=== PATIENT | male | born 1960 | race Caucasian/White ===

== ENCOUNTER 2018-02-04 16:43 | Observation (INO) | payer OTHER ==
[2018-02-04] MEDS ORDERED: ASPIRIN CHEW 81 MG TABLET PO STA (17:18)
[2018-02-04] MEDS ORDERED: NITROGLYCERIN SL 0.4 MG TABLET SL STA ×2 (17:18→17:52)
--- NOTE | 2018-02-04 17:19 | ED Physician Documentation ---
History of Present Illness - Stated complaint Stated Complaint: CHEST PX - Chief complaint Chief Complaint: General - History obtained from History obtained from: Patient, Family - History of Present Illness Timing: How many hours ago (2) Pain level max: 6 Pain level now: 5 Improved by: nothing Worsened by: palpation - Additonal information Additional information: Patient is a 57-year-old gentleman with no real significant past medical history who states he developed left-sided chest pain approximately 2 hours ago. Describes this as a dull ache. Worse with palpation and movement. Denies any recent injury or trauma. Nothing is improved the pain. Has never had similar symptoms. No history of cardiac disease. Does not smoke. Has a strong family history of cardiac disease. Review of Systems Ten Systems: 10 systems reviewed and negative Constitutional: denies: Fever, Chills Ears: denies: Ear pain Nose: denies: Rhinorrhea / runny nose, Congestion Throat: denies: Sore throat Cardiac: reports: Chest pain / pressure Respiratory: denies: Dyspnea, Cough, Hemoptysis, Wheezing GI: denies: Abdominal Pain, Nausea, Vomiting, Diarrhea Skin: denies: Rash Musculoskeletal: denies: Neck pain, Back pain Neurologic: denies: Focal weakness, Numbness, Headache PD PAST MEDICAL HISTORY - Past Medical History Past Medical History: No - Past Surgical History Past Surgical History: No - Present Medications Home Medications: Ambulatory Orders Medication Instructions Recorded Confirmed No Known Home Medications [No 02/04/18 02/04/18 Known Home Medications] - Allergies Allergies/Adverse Reactions: Allergies Allergy/AdvReac Type Severity Reaction Status Date / Time bee venom protein (honey bee) Allergy Unknown Verified 02/04/18 16:51 - Living Situation Living Situation: reports: With family Living Arrangement: reports: At home - Social History Does the pt smoke?: No Does the pt have substance abuse?: No - Family History Family history: reports: CAD PD ED PE NORMAL - Vitals Vital signs reviewed: Yes - General General: Alert and oriented X 3, No acute distress, Well developed/nourished - HEENT HEENT: PERRL, Moist mucous membranes - Neck Neck: Supple, no meningeal sign, No JVD, No bruit - Cardiac Cardiac: RRR, No murmur, Strong equal pulses - Respiratory Respiratory: No respiratory distress, Clear bilaterally - Abdomen Abdomen: Soft, Non tender, Non distended - Back Back: No spinal TTP - Derm Derm: Warm and dry - Extremities Extremities: No edema, No calf tenderness / cord - Neuro Neuro: Alert and oriented X 3 - Psych Psych: Normal mood, Normal affect Results - Vitals Vitals: Vital Signs - 24 hr 02/04/18 16:51 Temperature 36.9 C Heart Rate 72 Respiratory 16 Rate Blood Pressure 145/77 H O2 Saturation 99 Oxygen O2 Source Room air - EKG (time done) 1653 Rate: Rate (enter#) (64) Rhythm: NSR [place]: Normal QRS: LVH Ischemia: T wave inversion (III, aVF) Compare to prior EKG: Old EKG unavailable 1711 Rate: Rate (enter#) (57) Rhythm: NSR [place]: Normal Intervals: Normal [place] QRS: LVH Ischemia: T wave inversion (III, aVF) Computer interpretation: Agree with computer - Labs Labs: Laboratory Tests 02/04/18 02/04/18 02/04/18 17:15 17:15 17:15 WBC 13.6 H RBC 4.70 Hgb 13.7 L Hct 42.2 MCV 89.8 MCH 29.2 MCHC 32.5 RDW 13.9 Plt Count 294 MPV 6.9 L Neut # 10.5 H Lymph # 1.8 [place] # 0.8 Eos # 0.5 Baso # 0.1 Absolute Nucleated RBC 0.01 Nucleated RBC % 0.0 Sodium 138 Potassium 3.9 Chloride 103 Carbon Dioxide 27 Anion Gap 8.0 BUN 25 H Creatinine 0.7 Estimated GFR (MDRD) 116 Glucose 106 H Calcium 9.2 Total Bilirubin 0.6 AST 23 ALT 24 Alkaline Phosphatase 135 H Troponin I < 0.04 Total Protein 8.3 H Albumin 4.5 Globulin 3.8 Albumin/Globulin Ratio 1.2 Lipase 28 - Rads (name of study) cxr Radiology: Prelim report reviewed, EMP read contemporaneously, See rad report ( normal) PD MEDICAL DECISION MAKING - ED course Complexity details: reviewed results, re-evaluated patient, considered differential (No ST elevation RI, no aortic dissection, no PE, no tension pneumothorax, no aortic aneurysm), d/w patient, d/w family, d/w health management consultant ED course: Patient is a 57-year-old gentleman who presents to the emergency department with chest pain today. Feels better after nitroglycerin and Toradol. Nonspecific findings on EKG. Heart score of 4. Will place the patient in observation for rule out RI. Discussed the case with the hospitalist who accepts. Patient was given aspirin in the emergency department as well. This document was made in part using voice recognition software. While efforts are made to proofread this document, sound alike and grammatical errors may occur. Departure - Departure Disposition: ED Place in Observation Clinical Impression: Chest pain Qualifiers: Chest pain type: unspecified Qualified Code(s): R07.9 - Chest pain, unspecified Condition: Stable Discharge Date/Time: 02/04/18 19:00
[2018-02-04 17:22] LABS: BASOPHILS # (AUTO) 0.1 10^3/uL (0.0-0.1); BASOPHILS % (AUTO) 0.4 %; EOSINOPHILS # (AUTO) 0.5 10^3/uL (0.0-0.7); EOSINOPHILS % (AUTO) 3.7 %; HGB - HEMOGLOBIN 13.7 g/dL (14.0-18.0); LYMPHOCYTES # (AUTO) 1.8 10^3/uL (1.5-3.5); LYMPHOCYTES % (AUTO) 13.1 %; MEAN CORPUSCULAR HEMOGLOBIN 29.2 pg (27.0-31.0); MEAN CORPUSCULAR HGB CONC 32.5 g/dL (32.0-36.0); MEAN CORPUSCULAR VOLUME 89.8 fL (80.0-94.0); MEAN PLATELET VOLUME 6.9 fL (7.4-11.4); MONOCYTES # (AUTO) 0.8 10^3/uL (0.0-1.0); MONOCYTES % (AUTO) 5.9 %; NEUTROPHILS # (AUTO) 10.5 10^3/uL (1.5-6.6); NEUTROPHILS % (AUTO) 76.9 %; PLT - PLATELET COUNT 294 10^3/uL (130-450); RED CELL DISTRIBUTION WIDTH 13.9 % (12.0-15.0); WHITE BLOOD COUNT 13.6 x10^3/uL (4.8-10.8)
[2018-02-04 17:34] LABS: ALBUMIN 4.5 g/dL (3.2-5.5); ALBUMIN/GLOBULIN RATIO 1.2 (1.0-2.2); BILIRUBIN,TOTAL 0.6 mg/dL (0.2-1.0); CALCIUM 9.2 mg/dL (8.5-10.3); CREATININE 0.7 mg/dL (0.6-1.2); TOTAL PROTEIN 8.3 g/dL (6.7-8.2)
--- NOTE | 2018-02-04 17:38 | XRAY Report ---
EXAM: CHEST RADIOGRAPHY EXAM DATE: 02/04/2018 05:04 PM. CLINICAL HISTORY: Chest pain. COMPARISON: None. TECHNIQUE: 2 views. FINDINGS: Lungs/Pleura: No focal opacities evident. No pleural effusion. No pneumothorax. Normal volumes. Mediastinum: Heart and mediastinal contours are unremarkable. Other: Mild anterior wedging is present at multiple levels in the mid to lower thoracic spine. IMPRESSION: Normal 2-view chest radiography. [facility] Referring Provider Line: [phone] SITE ID: [id number]
[2018-02-04] MEDS ORDERED: KETOROLAC 15 MG/ML VIAL IVP STA (17:52)
[2018-02-04] MEDS ORDERED: SODIUM CHLORIDE FLUSH 0.9% 10 ML SYRINGE IVP PRN (18:18)
[2018-02-04] MEDS ORDERED: TEMAZEPAM 15 MG CAPSULE PO PRN (18:18)
[2018-02-04] MEDS ORDERED: oxyCODONE 5 MG TABLET PO PRN (18:18)
--- NOTE | 2018-02-04 19:01 | HISTORY & PHYSICAL EXAMINATION ---
Chief Complaint - Chief Complaint Chief Complaint: chest pain History of Present Illness - Admitted From Admitted From:: Home - History Obtained From History obtained from: patient, ER physician - History of Present Illness HPI Comment/Other: Mr. Gabino Ya is a very pleasant 57-year-old gentleman who began to experience left chest pain at about 315 today. This pain was steady and did not wax or wane. It did not radiate and there was no associated symptomatology such as shortness of breath, diaphoresis, or nausea. The patient also noted that the pain was reproducible by palpation and movement. When the pain did not go away after about an hour the patient decided to come to the emergency department. Upon presentation to the emergency department some EKG changes were noted however these were consistent with the last EKG and his initial troponin was negative. Despite this, given the patient's age and the fact that both of his parents had known coronary artery disease in their 60s it was felt to be prudent to admit the patient to rule out any type of acute coronary event. He will therefore be admitted to a telemetry bed in the observation unit and serial troponins will be obtained. History - Family & Social History Family History: Mother: , CAD, Hyperlipidemia, Hypertension, [place], Father : , CAD, Hyperlipidemia, Hypertension, [place], Seizure Disorder, Sister: , Cancer (Sister of breast cancer), Other family: CVA/TIA Living arrangement: At home Living Situation: With spouse/s.o. - Substance History Use: Uses substance without health or social issues: NONE Abuse: Recurrent use of substance despite neg consequences: NONE Dependence: Experiences withdrawal or developed tolerances: NONE - POLST Patient has POLST: No POLST Status: Full Code Meds/Allgy - Home Medications Home Medications: Ambulatory Orders Medication Instructions Recorded Confirmed No Known Home Medications [No 02/04/18 02/04/18 Known Home Medications] - Allergies Allergies/Adverse Reactions: Allergies Allergy/AdvReac Type Severity Reaction Status Date / Time bee venom protein (honey bee) Allergy Unknown Verified 02/04/18 16:51 Review of Systems - Constitutional Constitutional: denies: Fatigue, Fever, Chills, Malaise, Diaphoresis, Night sweats - Eyes Eyes: denies: Pain, Amaurosis, Blurred vision, Dipolpia - Ears, Nose & Throat Ears, Nose & Throat: denies: Ear pain, Hearing loss, Tinnitus, Vertigo, Nasal discharge, Nosebleeds - Cardiovascular Cariovascular: reports: Chest pain. denies: Irregular heart rate, Palpitations , Edema, Syncope, Exertional dyspnea, Decr. exercise tolerance - Respiratory Respiratory: reports: SOB with exertion. denies: Cough, Wheezing, Hemoptysis, Orthopnea, SOB at rest - Gastrointestinal Gastrointestinal: denies: Abdominal pain, Abdominal distention, Constipation, Diarrhea, Change in bowel habits, Rectal bleeding - Genitourinary Genitourinary: denies: Dysuria, Frequency, Urgency, Hematuria - Musculoskeletal Musculoskeletal: denies: Muscle pain, Back pain, Muscle aches, Stiffness - Integumentary Integumentary: denies: Rash, Pruritis, Lesions, Dryness - Neurological Neurological: denies: General weakness, Focal weakness, Headache, Dizziness - Psychiatric Psychiatric: denies: Depression, Anxiety, Suicidal, Hallucinations - Endocrine Endocrine: denies: Polyuria, Polydypsia, Polyphagia - Hematologic/Lymphatic Hematologic/Lymphatic: denies: Anemia, Bruising, Lymphadenopathy - All Other Systems All Other Systems: reports: Reviewed and negative Exam - Vital Signs Reviewed Vital Signs: Yes Vital Signs: Vital Signs x48h Temp Pulse Resp BP Pulse Ox 02/04/18 18:40 68 18 115/73 97 02/04/18 16:51 36.9 C 72 16 145/77 H 99 - Physical Exam General Appearance: positive: No acute distress, Alert Eyes Bilateral: positive: Normal inspection, PERRL, EOMI, No lid inflammation, Conjunctivae nml, No scleral icterus ENT: positive: ENT inspection nml, Pharynx nml, No signs of dehydration Neck: positive: Nml inspection, Thyroid nml, No JVD, Trachea midline. negative : Thyromegaly Respiratory: positive: Chest non-tender, No respiratory distress, Breath sounds nml. negative: Wheezes, Rales, Rhonchi Cardiovascular: positive: Regular rate & rhythm, No murmur, No gallop Peripheral Pulses: positive: 1+ Abdomen: positive: Non-tender, No organomegaly, Nml bowel sounds, No distention. negative: Guarding, Rebound Back: positive: Nml inspection. negative: CVA tenderness (R), CVA tenderness (L ) Skin: positive: Color nml, No rash, Warm, Dry. negative: Cyanosis Extremities: positive: Non-tender, Full ROM, Nml appearance, No pedal edema Neurologic/Psychiatric: positive: Oriented x3, CN's nml (2-12), Motor nml, Sensation nml, Mood/affect nml Conclusion/Plan - Problem List (1) Chest pain Conclusion/Plan: The patient has chest pain which is centered in his chest and is reproducible by palpation and movement as well as taking a deep breath. This seems unlikely to be cardiac oriented however given the patient's family history of coronary artery disease in both his parents at about his age it is definitely prudent to rule him out for cardiac event at this time. We will therefore admit him to a telemetry bed, monitor his EKG and obtain serial troponins. If these are negative the patient may be safely discharged and will follow up with his primary care physician and a traffic analyst. Qualifiers: Chest pain type: unspecified Qualified Code(s): R07.9 - Chest pain, unspecified - Lab Results Fish Bones: 02/04/18 17:15 02/04/18 17:15 Core Measures - Anticipated LOS I expect patient to be DC'd or transferred within 96 hours.: Yes - DVT/VTE - Prophylaxis VTE/DVT Device ordered at admit?: Yes - AMI - Statin at Admit Aspirin Prescribed on Admit: Yes
[2018-02-04] MEDS: SODIUM CHLORIDE FLUSH 0.9% 10 ML SYRINGE IVP SCH (19:39)
[2018-02-04] MEDS: D5.45NS W/20 MEQ KCL 1,000 ML IV SCH (19:39)
[2018-02-05] MEDS: D5.45NS W/20 MEQ KCL 1,000 ML IV SCH (05:13)
[2018-02-05 05:33] LABS: CHOL/HDL RATIO 4.2 (<5.0); CHOLESTEROL 157 mg/dL; HDL CHOLESTEROL 37 mg/dL; LDL CHOLESTEROL,CALCULATED 105 mg/dL; LDL/HDL RATIO 2.8 (<3.6); VLDL CHOLESTEROL 15 mg/dL
[2018-02-05] MEDS: SODIUM CHLORIDE FLUSH 0.9% 10 ML SYRINGE IVP SCH (07:27)
[2018-02-05 07:43] VITALS: BP 128/67
--- NOTE | 2018-02-05 07:46 | Discharge Plan ---
Discharge Plan Disposition: 01 Home, Self Care Condition: Fair Diet: Regular Activity Restrictions: No Restrictions Shower Restrictions: No Driving Restrictions: No Weight Bearing: Full Weight Additional Instructions or Follow Up instructions: You presented to our emergency department with chest pain. We placed you in observation to do some blood tests and monitor your heart overnight. Your blood tests were normal and you had no abnormalities on you monitor. Your pain was reproducible with palpation of your chest wall. This usually means that the pain is a musculoskeletal pain meaning it is either coming from your muscles in the chest or from the bones or cartilage and is not pain from your heart. I believe that you most likely have costochondritis. This kind of pain usually will improve with the use of anti-inflammatory medications such as ibuprofen or aleve. I recommend that if the pain continues you take ibuprofen 3 times a day for 5 days. You were also found to have a low HDL. HDL is your good cholesterol and this is usually an indicator that you need to be more physically active and eat less fatty foods. You should have this re-checked by your primary care doctor in 3-4 months. No Smoking: If you smoke, Please STOP! Call for help. Follow-up with: Licha Ball MD [Physician No Access] -
[2018-02-05] MEDS ORDERED: POLYETHYLENE GLYCOL 3350 17 GM PACKET PO SCH (09:00)
--- NOTE | 2018-02-05 14:05 | DISCHARGE SUMMARY ---
Discharge Summary Admit Date: 02/04/18 Discharge Date: 02/05/18 Discharging Provider: Jose Elias Colbert MD Primary Care Provider: Licha Ball Code Status: Attempt Resuscitation Condition at Discharge: Fair Discharge Disposition: 01 Home, Self Care - DIAGNOSES Admission Diagnoses: 1. Chest Pain Discharge Diagnoses with Status of Each Condition: 1. Chest Pain; Unspecified -likely musculoskeletal: Stable 2. Dyslipidemia; Unspecified - Stable 3. Left Ventricular Hypertrophy - Stable - HPI History of Present Illness: Mr. Gabino Ya is a very pleasant 57-year-old gentleman who began to experience left chest pain at about 315 today. This pain was steady and did not wax or wane. It did not radiate and there was no associated symptomatology such as shortness of breath, diaphoresis, or nausea. The patient also noted that the pain was reproducible by palpation and movement. When the pain did not go away after about an hour the patient decided to come to the emergency department. Upon presentation to the emergency department some EKG changes were noted however these were consistent with the last EKG and his initial troponin was negative. Despite this, given the patient's age and the fact that both of his parents had known coronary artery disease in their 60s it was felt to be prudent to admit the patient to rule out any type of acute coronary event. He will therefore be admitted to a telemetry bed in the observation unit and serial troponins will be obtained. - HOSPITAL COURSE Hospital Course: Patient was placed in observation overnight and had 3 negative troponins. He had no events on telemetry. His initial EKG was not completely normal as patient had some left ventricular hypertrophy but he was not hypertensive during his stay. The patients pain did not resolve and his pain was very localized and reproducible. The patient also appeared to have some inflammation in the area where pain was. Likely this was a musculoskeletal pain and most likely from costochondritis. Patient was instructed to take ibuprofen 400 mg TID for the next 5 days to see if symptoms resolve. If patient continues to have pain he will follow up with his PCP. - ALLERGIES Allergies/Adverse Reactions: Allergies Allergy/AdvReac Type Severity Reaction Status Date / Time bee venom protein (honey bee) Allergy Unknown Verified 02/04/18 16:51 - MEDICATIONS Home Medications: Ambulatory Orders Medication Instructions Recorded Confirmed No Known Home Medications [No 02/04/18 02/04/18 Known Home Medications] - PHYSICAL EXAM AT DISCHARGE General Appearance: positive: No acute distress Eyes Bilateral: positive: Normal inspection, PERRL, EOMI, No lid inflammation, Conjunctivae nml, No scleral icterus ENT: positive: ENT inspection nml, Pharynx nml, No signs of dehydration. negative: Purulent nasal drainage, Pharyngeal erythema, Oral lesions Neck: positive: Nml inspection, Thyroid nml, No JVD, Trachea midline. negative : Thyromegaly, Lymphadenopathy (R), Lymphadenopathy (L), Stiff neck Respiratory: positive: No respiratory distress, Breath sounds nml, Other ( Localized chest wall tenderness at the 8th to 9th rib midclavicular on the left chest wall. ). negative: Wheezes, Rales, Rhonchi Cardiovascular: positive: Regular rate & rhythm, No murmur, No gallop Peripheral Pulses: positive: 2+ Abdomen: positive: Non-tender, No organomegaly, Nml bowel sounds, No distention. negative: Guarding, Rebound, Hepatomegaly Back: positive: Nml inspection. negative: CVA tenderness (R), CVA tenderness (L ) Skin: positive: Color nml, No rash, Warm. negative: Diaphoresis, Pallor, Skin rash Extremities: positive: Non-tender, Full ROM, Nml appearance, No pedal edema Neurologic/Psychiatric: positive: Oriented x3, CN's nml (2-12), Motor nml, Sensation nml - LABS Result Diagrams: 02/04/18 17:15 02/04/18 17:15 Other Lab Results: Laboratory Results WBC 13.6 x10^3/uL (4.8-10.8) H 02/04/18 17:15 RBC 4.70 10^6/uL (4.70-6.10) 02/04/18 17:15 Hgb 13.7 g/dL (14.0-18.0) L 02/04/18 17:15 Hct 42.2 % (42.0-52.0) 02/04/18 17:15 MCV 89.8 fL (80.0-94.0) 02/04/18 17:15 MCH 29.2 pg (27.0-31.0) 02/04/18 17:15 MCHC 32.5 g/dL (32.0-36.0) 02/04/18 17:15 RDW 13.9 % (12.0-15.0) 02/04/18 17:15 Plt Count 294 10^3/uL (130-450) 02/04/18 17:15 MPV 6.9 fL (7.4-11.4) L 02/04/18 17:15 Neut # 10.5 10^3/uL (1.5-6.6) H 02/04/18 17:15 Lymph # 1.8 10^3/uL (1.5-3.5) 02/04/18 17:15 [place] # 0.8 10^3/uL (0.0-1.0) 02/04/18 17:15 Eos # 0.5 10^3/uL (0.0-0.7) 02/04/18 17:15 Baso # 0.1 10^3/uL (0.0-0.1) 02/04/18 17:15 Absolute Nucleated RBC 0.01 x10^3/uL 02/04/18 17:15 Nucleated RBC % 0.0 /100WBC 02/04/18 17:15 Sodium 138 mmol/L (135-145) 02/04/18 17:15 Potassium 3.9 mmol/L (3.5-5.0) 02/04/18 17:15 Chloride 103 mmol/L (101-111) 02/04/18 17:15 Carbon Dioxide 27 mmol/L (21-32) 02/04/18 17:15 Anion Gap 8.0 (6-13) 02/04/18 17:15 BUN 25 mg/dL (6-20) H 02/04/18 17:15 Creatinine 0.7 mg/dL (0.6-1.2) 02/04/18 17:15 Estimated GFR (MDRD) 116 (>89) 02/04/18 17:15 Glucose 106 mg/dL (70-100) H 02/04/18 17:15 Calcium 9.2 mg/dL (8.5-10.3) 02/04/18 17:15 Total Bilirubin 0.6 mg/dL (0.2-1.0) 02/04/18 17:15 AST 23 IU/L (10-42) 02/04/18 17:15 ALT 24 IU/L (10-60) 02/04/18 17:15 Alkaline Phosphatase 135 IU/L (42-121) H 02/04/18 17:15 Troponin I < 0.04 ng/mL (<0.49) 02/05/18 05:10 Total Protein 8.3 g/dL (6.7-8.2) H 02/04/18 17:15 Albumin 4.5 g/dL (3.2-5.5) 02/04/18 17:15 Globulin 3.8 g/dL (2.1-4.2) 02/04/18 17:15 Albumin/Globulin Ratio 1.2 (1.0-2.2) 02/04/18 17:15 Triglycerides 77 mg/dL (-149) 02/05/18 05:10 Cholesterol 157 mg/dL (-199) 02/05/18 05:10 LDL Cholesterol, Calc 105 mg/dL (-129) 02/05/18 05:10 VLDL Cholesterol 15 mg/dL 02/05/18 05:10 HDL Cholesterol 37 mg/dL (60-) L 02/05/18 05:10 LDL/HDL Ratio 2.8 (<3.6) 02/05/18 05:10 Cholesterol/HDL Ratio 4.2 (<5.0) 02/05/18 05:10 Lipase 28 U/L (22-51) 02/04/18 17:15 - DIAGNOSTIC IMAGING Diagnostic Imaging Results: Final report reviewed Diagnostic Imaging Results Comments: Chest Xray: No acute findings - FOLLOW UP Follow Up: Patient instructed to take ibuprofen 400 mg TID with meals for next 5 days to help with what appears to be MSK chest pain likely costochondritis. Also found to have low HDL and instructed to exercise and eat a healthier diet. Will follow up with his PCP. - TIME SPENT Time Spent in Discharge (Minutes): 35
== END 2018-02-05 09:20 | disposition home or self-care (01) ==
LOC: ED 16:43 → OBS 18:18
PROVIDERS: ADMIT Hospitalist; ATTEND Internal Medicine
DX: R07.89 Other chest pain (principal); E78.5 Hyperlipidemia, unspecified; I51.7 Cardiomegaly; Z82.49 Family history of ischemic heart disease and other diseases of the circulatory system
CPT/HCPCS: 36415; 71046; 80053; 80061; 83690; 84484; 85025; 93005; 96374; 99283; 99285; A9270; G0378; 83721; 96361; 99284